=== PATIENT | male | born 1950 | race Caucasian/White ===

== ENCOUNTER → 2020-03-24 | Outpatient (CLI) | payer MEDICARE, OTHER ==
[~2020-03-24] MED LIST: COMBIGAN EYE DR10 ML OPHTHALMIC; MILK THISTLE175 M1 PO; OMEPRAZOLE40 MG PO; OXYCODONE HCL 55 MG PO; RHOPRESSA2.5 ML OPHTHALMIC; TRAVATAN Z2.5 ML OPHTHALMIC; TYLENOL325 M1 PO
== END ==
LOC: M.LAB 09:04
PROVIDERS: ATTEND Surgery
DX: Z01.812 Encounter for preprocedural laboratory examination (principal); Z20.828 Contact with and (suspected) exposure to other viral communicable diseases

== ENCOUNTER → 2020-03-29 | Day surgery (SDC) | payer OTHER, MEDICARE ==
[2020-03-29 06:35] LABS: HEMATOCRIT 48.8 % (42.0-52.0); MCH 30.9 pg (26.0-34.0); MCHC 34.8 g/dL (28.0-37.0); MCV 88.7 fL (80.0-100.0); MPV 8.4 fl. (7.2-11.1); RBC 5.51 mil/uL (4.50-6.00); WBC 6.7 thou/uL (4.0-11.0)
[2020-03-29 06:48] LABS: CALCIUM 9.5 mg/dL (8.5-10.1); CREATININE 1.1 mg/dL (0.6-1.3); POTASSIUM 4.1 mmol/L (3.5-5.1)
--- NOTE | 2020-03-29 09:46 | EKG ---
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: [facility] : 1950 Requested By: Mian Orlando Order Number: [id number] Reading MD: Abdirahman Richardson Measurements Intervals [place] Rate: 60 P: 46 HI: 132 QRS: 27 QRSD: 91 T: 65 QT: 408 QTc: 408 Interpretive Statements Sinus rhythm Abnormal R-wave progression, early transition ST elevation, consider early repolarization No previous ECG available for comparison Electronically Signed On 03-29-2020 9:45:54 CDT by Abdirahman Richardson [email or web address] <ELECTRONICALLY SIGNED> By: Abdirahman Richardson MD, [facility] 03/29/20 0945 8 8 Abdirahman Richardson MD, FAC /EPI
--- NOTE | 2020-03-31 15:07 | PATH ---
[address] [address] PATHOLOGY RPT PROCEDURE Name: JUANCARLOS DE LEON Room: [facility].#: [id number] Admission: 03/29/20 Date of : 50 Discharge: Report #: [id number] Path Case #: [id number] [facility] Accession Number: [id number] . 01 Material submitted: . gallbladder - GALLBLADDER . 01 Clinical history: . BILIARY DYSKINESIA . 02 Diagnosis: Gallbladder: - Chronic cholecystitis with incidental benign lymph node. (CHERYL:courtney; 03/31/2020) [facility] [place] 03/31/2020 125 Local . 02 Electronically signed: . Ye Ray MD, Pathologist NPI- [id number] . 01 Gross description: . The specimen is received in formalin labeled "Juancarlos De Leon, gallbladder" and consists of an intact green gallbladder measuring 7.8 x 2.6 x 2.5 cm. The margin is inked black. Opening reveals a lumen filled with viscous green bile and no calculi. The mucosa is green and velvety with an average wall thickness of 0.1 cm. No masses are identified. Cut Out And Marking Machine Operator sections are submitted in A1. (SDY; 03/30/2020) SYU/SYU 03/30/2020 1021 Local . 02 Pathologist provided ICD-10: K81.1 . 02 CPT . 755962 Specimen Comment: A courtesy copy of this report has been sent to [phone] Specimen Comment: [phone], [phone] Specimen Comment: Report sent to ,DR BALDERRAMA / DR ROSS Performed at: [address] [facility], [place] [id number] MD Easton Cueva MD Phone: [phone] Performed at: [address] [address] [address] [place], [place] [id number] MD Ye Ray MD Phone: [phone]
--- NOTE | 2020-04-08 10:32 | OP ---
[facility] [address] [place] [address] OPERATIVE REPORT Name: HELDER DAVALOS Room: [facility]#: [id number] Admission: 03/29/20 Attend Phys: Mian Orlando DO Discharge: Date of : 50 Report #: [id number] THIS REPORT FOR: //name// cc: Koffi Albarado MD, Matthew W. MD ~ CC: Mian Albarado DICTATED BY: Brayden Bañuelos DO DATE OF SERVICE: 03/29/[address] Mian Orlando. PRIMARY CARE PHYSICIAN: Per Rain MD PREOPERATIVE DIAGNOSIS: Biliary dyskinesia. POSTOPERATIVE DIAGNOSES: Biliary dyskinesia and chronic cholecystitis. SURGEON: Mian Orlando DO CO-SURGEON: Brayden Bañuelos DO PGY-4. MECHANICAL SERVICE SPECIALIST: Josias Garcia MS3. PROCEDURE PERFORMED: Laparoscopic cholecystectomy with immunofluorescence imaging. ANESTHESIA: General and regional. ESTIMATED BLOOD LOSS: 20 mL. SPECIMEN: Gallbladder. COMPLICATIONS: None. HISTORY OF PRESENT ILLNESS: The patient is a 69-year-old male with history of right upper quadrant pain, worse with eating greasy, fried, fatty foods. He did have an ultrasound, which was negative and a subsequent HIDA scan, which revealed biliary dyskinesia. Risks, benefits, alternatives of surgery were discussed at length with him and he agreed to proceed with surgery. [facility] [address] [place] [address] OPERATIVE REPORT Name: HELDER DAVALOS Room: [facility]#: [id number] Admission: 03/29/20 Attend Phys: Mian Orlando DO Discharge: Date of : 50 Report #: [id number] DESCRIPTION OF PROCEDURE: After consent was obtained, the patient was taken to the operating room and placed in the supine position. SCDs applied to bilateral lower extremities and safety belt placed across the patient's waist. Prophylactic antibiotics were given for surgical prophylaxis. The patient underwent general endotracheal anesthesia without any complication. The patient received bilateral TAP blocks by Anesthesia prior to the start of surgery. The patient's abdomen was then prepped and draped in the standard sterile fashion. A timeout was performed confirming patient and procedure. A an 11 blade scalpel was used to make a vertical incision just above the umbilicus. Electrocautery used for hemostasis and to dissect down to the level of fascia. Once fascia was encountered, it was scored with electrocautery and grasped between 2 Kochers. Two stitches of 0 Vicryl were placed on either side of the fascia. Hemostat was used to bluntly enter the peritoneum, 5 mm Sariah trocar was inserted into the abdomen. Insufflation was initiated without any complication. Intraabdominal contents were then inspected carefully. There was significant omentum up over the liver and the gallbladder could not be visualized. The patient was then placed in reverse Trendelenburg, rotated towards the left. A second 5 mm trocar was placed subxiphoid under direct visualization. A blunt grasper was introduced into the abdomen. The omentum was swept caudad. The gallbladder was visualized. There were multiple adhesions of the gallbladder. Two more 5 mm trocars were placed in the right upper quadrant. The gallbladder was grasped and elevated. Electrocautery was used to carefully take down the omental adhesions to the gallbladder. This is a sign of chronic cholecystitis. Once the gallbladder was completely freed from surrounding adhesions, attention was turned towards isolating the cystic artery and cystic duct. A combination of electrocautery and blunt dissection with the [place] dissector was used to circumferentially dissect out the cystic duct, this could be seen going up into the gallbladder. Firefly immunofluorescence was used to visualize the biliary ductal system and the structure, we dissected out was confirmed to be the cystic duct. Once the duct was completely isolated, we turned our attention medially to isolate the cystic artery. This was found easily and again dissected out using a combination of electrocautery and blunt dissection with a [place] dissector. Both structures were isolated and could be seen going up into the gallbladder. Critical view of safety was obtained. We placed 1 proximal and 1 distal wet clip on the artery. We placed 2 proximal and 1 distal wet clips on the duct. Both structures were cut. Electrocautery was used to carefully dissect the gallbladder off the bed of the liver. Hemostasis of the liver bed was assured with electrocautery. The gallbladder was placed in laparoscopic EndoCatch bag. Liver was elevated. Hemostasis was completely ensured with electrocautery. Clips were inspected and appeared to be in good position. There was no blood or bile leak. At this point, we elected to terminate the procedure. Insufflation was let down. All trocars were removed under direct visualization. Gallbladder and its contents were removed from the supraumbilical trocar site. Supraumbilical fascia was closed with one stitch of 0 Vicryl in a [id number]-it-pkymx fashion. Subcutaneous tissue reapproximated with 3-0 Vicryl. All skin incisions reapproximated with 4-0 Monocryl in subcuticular [address] [address] OPERATIVE REPORT Name: HELDER DAVALOS [id number] Admission: 03/29/20 Attend Phys: Mian Orlando DO Discharge: Date of : 50 Report #: [id number]. Skin glue applied to all incisions. All needle, instrument, and sponge counts were correct x 2 at the end of the case. <ELECTRONICALLY SIGNED> By: Mian Orlando DO 04/08/20 1032 0945 [id number] roberto Orlando DO /nt
== END | disposition home or self-care (01) ==
LOC: M.SUR
PROVIDERS: ATTEND Surgery
DX: K81.1 Chronic cholecystitis (principal); D36.0 Benign neoplasm of lymph nodes; R10.9 Unspecified abdominal pain